=== PATIENT | male | born 1950 | race Caucasian/White ===

== ENCOUNTER 2025-03-28 15:30 | Emergency (ER) | payer MEDICARE, OTHER, SELFPAY ==
[2025-03-28 15:50] VITALS: BP 148/78
[2025-03-28 16:00] VITALS: BP 134/68
[2025-03-28] MEDS: ADACEL 0.5 ML IM (18:21)
--- NOTE | 2025-03-28 23:31 | ED.SKININJ ---
HPI-Injury
General
Chief Complaint: Head Injury
Source: patient
Exam Limitations: none
Time Seen by Provider: 03/28/25 16:51
Nursing documentation reviewed up to this point in time: agreed with
History of Present Illness-Injury
Is this injury a work related problem?: No
Is pt an associate of [facility]?: No
Initial Injury comments:
Patient to the emergency department for evaluation after falling at home. He states he was carrying packages lost his footing and fell. He hit the left side of his head on furniture and then again on the floor. No LOC. He sustained a laceration
to the left side of his forehead. Brought to the emergency department by spouse for evaluation. Injury occurred just prior to arrival
Past History
Past History
ED Past Medical History: HTN
Review of Systems
Review of Systems
Allergies reviewed?: Yes
All Other Systems: ROS reviewed and negative except as documented in HPI and ROS
Constitutional: Reports no symptoms
EENT: Reports no symptoms
Respiratory: Reports no symptoms
Cardiac: Reports no symptoms
ABD/GI: Reports no symptoms
: Reports no symptoms
Musculoskeletal: Reports no symptoms
Skin: Reports other (Laceration left forehead)
Neurological: Reports no symptoms
Psychiatric: Reports no symptoms
Skin Exam
Laceration
Left Forehead:
Length in cm: 3
Orientation: horizontal
Type of Laceration: layered
Any active bleeding?: no active bleeding
Distal skin color and temperature: normal-warm & good color
Normal distal neurovascular exam: Yes
Range of motion: full
Phy Exam
General Physical Exam
General Presentation: well appearing and no apparent distress
General age: appears stated age
General Skin: warm and dry
General Habitus: normal
General Mental: alert
Pulmonary Exam
Pulmonary Exam: no respiratory distress and chest non tender
Gastrointestinal Exam
Gastrointestinal Exam: non tender and soft
Neurological Exam
Neurological Exam: alert, oriented x3, CN II-XII intact, no motor deficits, no sensory deficits, speech normal and normal gait
Omar Coma Scale
Eye Opening: Spontaneous
Verbal Response: Oriented
Motor Response: Obeys Commands
GCS Total Score: 15
Musculoskeletal Exam
Musculoskeletal Exam: full ROM and neuro vasc intact
Skin Exam
Skin Exam: warm/dry and no rash
Psychiatric Exam
Psychiatric Exam: normal mood/affect
Course
Orders/Labs/Results
Orders:
Orders
03/28/25 17:49
CT Head W/o Iv Contrast Urgent
Comment:
Reason For Exam: trauma
03/28/25 18:09
Tetanus/Diphth/Acelpertussis [Adacel] 0.5 ml IM .ONCE ONE
Vital Signs
Initial and Last Documented VS:
Initial Vital Signs
Temp Pulse Resp BP Pulse Ox
98.0 F 84 16 148/78 98
03/28/25 15:50 03/28/25 15:50 03/28/25 15:50 03/28/25 15:50 03/28/25 15:50
Last Documented Vital Signs
Temp Pulse Resp BP Pulse Ox
98.0 F 74 16 134/68 100
03/28/25 15:50 03/28/25 16:00 03/28/25 16:00 03/28/25 16:00 03/28/25 23:36
Procedures
Laceration Closure
Left Forehead:
Status of Wound: clean
Description of Wound Edges: sharp
Preparation: cleaned with saline
Anesthesia: 1% Lidocaine with epi
Revision/Debridement: routine- no revision
Wound exploration: explored to base- no FB
Type of Closure: layered closure
Skin Closure Material: 6-0 prolene and 5-0 chromic gut
*Radiology
Radiology exam reviewed: radiology read reviewed
*Pulse Oximetry
SaO2: 100
Oxygen Mode of Delivery: Room air
Patient hypoxic: no
*Critical Care Note
Total Time (30-74mins, 75-104mins- exclusive of procedures): Not Applicable
Update Note
Update Note:
Patient to the emergency department for evaluation after trip and fall at home. He hit the left side of his head on furniture. He sustained a large laceration to his left forehead. There was no LOC. He remains awake alert and oriented.
Laceration was closed bedside. He tolerated procedure without incident. CT of head completed. No acute findings noted. He will be discharged home. Recommend follow-up with PCP in 2 days for wound check, sutures can be removed in 7 to 10 days by
his family doctor. He was given instructions on signs and symptoms to return to the emergency department and he is agreeable to this plan.
ED Attending Note
-
Portions of this chart may have been created with voice recognition software.� Occasional wrong word or��sound alike� substitutions may have occurred due to the inherent limitations of voice recognition software.
Discharge Plan
Departure
Patient Disposition: Home (Routine Discharge)
Date of Disposition: 03/28/25
Time of Disposition: 18:57
Patient with high blood pressure during this ER visit?: No
Condition: Good
Covid-19: Not Applicable
Discharge Problem:
Head injury, Face lacerations
Instructions: Head Injury in Adults (DC), Laceration Repair With Stitches (DC)
Referrals:
Casimiro Hyman MD [Family Provider, Family Practice] - Follow up in 1 week
Referral Note: Sutures can be removed in 5-7 days.
Interventions
Interventions:
*General Assessment Last Done: 03/28/25 17:31
*Neglect/Abuse Screening Last Done: 03/28/25 15:50
*ED COVID-19 Vaccine History Last Done: 03/28/25 19:03
*ED Influenza Vaccine History Last Done: 03/28/25 19:03
[facility] Risk Assessment Tool Last Done: 03/28/25 15:30
*Risk Screen - Suicide (C-SSRS) Last Done: 03/28/25 15:50
*Nursing Disposition Last Done: 03/28/25 19:03
ED- Neurological Assessment Last Done: 03/28/25 17:31
ED-Skin Assessment Last Done: 03/28/25 17:31
Discharge Date and Time
Discharge Date/Time: 03/28/25 19:03
Print Language: CHINESE
== END 2025-03-28 19:03 | disposition home or self-care (01) ==
LOC: EMR 15:30
PROVIDERS: EMERGENCY PHYSICIAN Emergency Medicine; FAMILY PHYSICIAN Family Medicine
DX: S01.81XA Laceration without foreign body of other part of head, initial encounter (principal); W01.0XXA Fall on same level from slipping, tripping and stumbling without subsequent striking against object, initial encounter; Y92.009 Unspecified place in unspecified non-institutional (private) residence as the place of occurrence of the external cause; Z23 Encounter for immunization; I10 Essential (primary) hypertension
CPT/HCPCS: 99284; 12001; 90471; 70450; 90715